=== PATIENT | male | born 1950 | race Caucasian/White ===

== ENCOUNTER → 2017-04-02 | Outpatient (CLI) | payer MEDICARE, OTHER ==
[~2017-04-02] MED LIST: ALLOPURINOL 10100 M1 PO; HYDROCODON-ACE1 EAC7 PO; HYDROCODONE-AP1 EAC6 PO; HYTRIN 5 M5 MG/1 CAP PO; INDOMETHACIN 2525 MG PO; LOPRESSOR100 M1 PO; PERCOCET PO; PRILOSEC20 MG PO; PRINIVIL20 MG PO; VIAGRA100 MG; ZOCOR20 MG PO
== END ==
LOC: M.MRI 07:44
DX: I67.82 Cerebral ischemia (principal)

== ENCOUNTER 2017-11-17 22:14 | Emergency (ER) | payer MEDICARE, OTHER ==
[~2017-11-17] VITALS: Ht 182.9 cm; Wt 102.1 kg
[~2017-11-17 22:14] MED LIST changes: -INDOMETHACIN 2525 MG PO; -PERCOCET PO
[2017-11-17 23:18] LABS: URINE BILIRUBIN NEGATIVE (Negative); URINE BLOOD NEGATIVE (Negative); URINE CLARITY CLEAR; URINE COLOR YELLOW; URINE GLUCOSE-RANDOM NEGATIVE (Negative); URINE KETONES NEGATIVE (Negative); URINE LEUKOCYTES-REFLEX NEGATIVE (Negative); URINE NITRITE-REFLEX NEGATIVE (Negative); URINE PROTEIN NEGATIVE (Negative); URINE UROBILINOGEN 0.2 E.U./dl (0.2-1.0)
[2017-11-17 23:19] LABS: ABSOLUTE EOSINOPHILS 0.2 thou/uL (0.0-0.7); ABSOLUTE LYMPHOCYTES 1.3 thou/uL (0.8-5.3); ABSOLUTE MONOCYTES 0.6 thou/uL (0.0-1.2); ABSOLUTE NEUTROPHILS 4.1 thou/uL (1.6-8.1); BASOPHILS 0.6 %; HEMATOCRIT 36.3 % (42.0-52.0); HEMOGLOBIN 12.3 gm/dL (14.0-18.0); LYMPHOCYTES 20.6 %; MCH 30.3 pg (26.0-34.0); MCHC 33.8 g/dL (28.0-37.0); MCV 89.6 fL (80.0-100.0); MONOCYTES 10.3 %; MPV 8.7 fl. (7.2-11.1); NUCLEATED RBCS 0 /100WBC; PLATELET COUNT* 156 thou/uL (150-400); POLYS 65.5 %; RBC 4.05 mil/uL (4.50-6.00); WBC 6.3 thou/uL (4.0-11.0)
[2017-11-17 23:26] LABS: CALCIUM 8.2 mg/dL (8.5-10.1); CREATININE 0.9 mg/dL (0.6-1.3)
[2017-11-17 23:31] LABS: ALBUMIN 3.7 g/dL (3.4-5.0); TOTAL BILIRUBIN 0.4 mg/dL (<0.1-1.0); TOTAL PROTEIN 7.5 g/dL (6.4-8.2)
[2017-11-18] MEDS ORDERED: PERCOCET PO (00:50)
[2017-11-18] MEDS ORDERED: INDOMETHACIN 2525 MG PO (00:50)
[2017-11-18 01:00] VITALS: BP 153/70
== END 2017-11-18 01:02 | disposition home or self-care (01) ==
LOC: M.ERS 22:14
PROVIDERS: Emergency Medicine
DX: R10.31 Right lower quadrant pain (principal); I10 Essential (primary) hypertension; Z96.653 Presence of artificial knee joint, bilateral; Z85.528 Personal history of other malignant neoplasm of kidney

== ENCOUNTER → 2018-10-21 | Outpatient (CLI) | payer MEDICARE, OTHER ==
[~2018-10-21] MED LIST changes: +INDOMETHACIN 2525 MG PO; +PERCOCET PO
== END ==
LOC: M.CT 12:26
DX: K40.90 Unilateral inguinal hernia, without obstruction or gangrene, not specified as recurrent (principal); I25.10 Atherosclerotic heart disease of native coronary artery without angina pectoris; Z87.891 Personal history of nicotine dependence; D64.9 Anemia, unspecified

== ENCOUNTER → 2019-05-02 | Outpatient (CLI) | payer MEDICARE, OTHER | LOC: M.ULTRA 04-25 10:00 | DX: N50.3 Cyst of epididymis (principal); I86.1 Scrotal varices ==

== ENCOUNTER → 2019-05-21 | Outpatient (CLI) | payer MEDICARE, OTHER | LOC: M.CT 12:57 | DX: N40.0 Benign prostatic hyperplasia without lower urinary tract symptoms (principal); N50.89 Other specified disorders of the male genital organs; K21.9 Gastro-esophageal reflux disease without esophagitis; M10.9 Gout, unspecified; E78.5 Hyperlipidemia, unspecified; I10 Essential (primary) hypertension; G20 Parkinson's disease; M47.817 Spondylosis without myelopathy or radiculopathy, lumbosacral region ==

== ENCOUNTER → 2019-10-02 | Outpatient (CLI) | payer MEDICARE, OTHER ==
[~2019-10-02] MED LIST changes: +BUPROPION XL150 MG PO; +CARBIDOPA-LEVO1 EAC9 PO; +EXELON1 EAC1 TRANSDERM; +FLUOXETINE HCL60 MG PO; +HYTRIN 2MG CAPSU2 M1 PO; +PRILOSEC OTC20 MG PO; -PRILOSEC20 MG PO; +REMERON30 MG PO
== END ==
LOC: M.LAB 15:09
PROVIDERS: ATTEND Surgery
DX: Z01.818 Encounter for other preprocedural examination (principal); K40.91 Unilateral inguinal hernia, without obstruction or gangrene, recurrent; Z11.59 Encounter for screening for other viral diseases

== ENCOUNTER → 2019-10-08 | Day surgery (SDC) | payer MEDICARE, OTHER ==
[~2019-10-08] MED LIST changes: +OXYCODONE HCL 55 MG PO
[2019-10-08 06:51] LABS: HEMATOCRIT 34.7 % (42.0-52.0); MCH 31.6 pg (26.0-34.0); MCHC 34.5 g/dL (28.0-37.0); MCV 91.6 fL (80.0-100.0); MPV 8.4 fl. (7.2-11.1); RBC 3.79 mil/uL (4.50-6.00); RDW-CV 13.6 % (10.5-14.5); WBC 4.2 thou/uL (4.0-11.0)
[2019-10-08 06:59] LABS: CALCIUM 8.1 mg/dL (8.5-10.1); CREATININE 0.9 mg/dL (0.6-1.3); POTASSIUM 3.9 mmol/L (3.5-5.1)
--- NOTE | 2019-10-08 10:40 | EKG ---
[place] [address] ELECTROCARDIOGRAM REPORT Name: ELVIS GLASGOW JR Room: [facility]#: [id number] Admission: 10/08/19 Attend Phys: Russell Gilbert DO Discharge: Date of : 46 Date of Service: 10/08/19 0634 Report #: [id number] THIS REPORT FOR: //name// [facility] Test Date: 2019-10-08 Test Time: 06:34:16 Pat Name: ELVIS GLASGOW Department: Room: Gender: Dredge Hand: REGINALD SUTTON : 1950 Requested By: Russell Gilbert Order Number: [id number] MD: George Simon Measurements Intervals [place] Rate: 83 P: 51 CT: 178 QRS: 58 QRSD: 146 T: 11 QT: 393 QTc: 462 Interpretive Statements Sinus rhythm Probable left atrial enlargement Right bundle branch block Artifact in lead(s) I,aVR,aVL,aVF Compared to ECG 10/04/2016 14:59:48 Right bundle-branch block now present Sinus tachycardia no longer present Electronically Signed On 10-08-2019 10:39:57 CDT by George Simon [email or web address] <ELECTRONICALLY SIGNED> By: George Simon MD, FAC 10/08/19 1039 0634 0634 George Siomn MD, FAC /EPI
--- NOTE | 2019-10-11 09:37 | OP ---
[address] [address] OPERATIVE REPORT Name: MYAHELVIS Nandini TALBOT Room: [facility]#: [id number] Admission: 10/08/19 Attend Phys: Russell Gilbert DO Discharge: Date of : 46 Report #: [id number] THIS REPORT FOR: //name// cc: Rebecca Valdez MD, Lin W. MD ~ THIS REPORT FOR: //name// CC: Russell Valdez MD DATE OF SERVICE: 10/08/2019 REFERRING PHYSICIAN: Dr. Rebecca Valdez. PREOPERATIVE DIAGNOSIS: Recurrent left inguinal hernia. POSTOPERATIVE DIAGNOSIS: Recurrent left inguinal hernia. PROCEDURE: Da Clifford robotic-assisted recurrent left inguinal hernia repair with 10 x 15 cm anatomic ProGrip mesh. SURGEON: Russell Gilbert DO AIRCRAFT ENGINEER: Jemal Bassett DO, PGY-1, resident. ANESTHESIA: General endotracheal and TAP blocks. ESTIMATED BLOOD LOSS: Less than 20 mL. COMPLICATIONS: None. DESCRIPTION OF PROCEDURE: After obtaining proper consents and discussing risks and complications with the patient as well as marking him in the preoperative holding area, he was taken to the operating room, laid in the supine position, administered general endotracheal anesthetic. TAP blocks were then performed by anesthesia. He was then prepped and draped in the usual sterile fashion. A timeout was performed. We confirmed the appropriate patient and procedure. Preoperative antibiotics had been given. We then made a small supraumbilical skin incision with a #11 scalpel blade. This was carried down through the skin into the subcutaneous tissue. Once the fascia was encountered, it was incised along the midline, grasped and elevated with Mark clamps. The peritoneum was then bluntly opened using a hemostat. We then placed 2-0 Vicryl sutures in a eheioy-zo-djuaq fashion to secure the da Clifford camera port, which was then inserted and insufflation was begun. Once insufflation was complete, full visual inspection of the anterior abdominal organs [place] [address] OPERATIVE REPORT Name: ELVIS GLASGOW JR Room: [facility].#: [id number] Admission: 10/08/19 Attend Phys: Russell Gilbert DO Discharge: Date of : 46 Report #: [id number] some adhesions, but a very definite hernia in the left lower quadrant with sigmoid colon going into it and on the right side, there did not appear to be a hernia; however, there were some adhesions of the terminal ileum to the right lower abdomen. We then placed two more 8.5 mm da Clifford ports, one in the right upper quadrant, one in the left upper quadrant. We then docked the da Clifford robot. Once the robot was docked, the camera was inserted, we then inserted a monopolar scissors in the right upper quadrant bipolar fenestrated grasper in the left upper quadrant. I then broke scrub and went on console. Once on console, I identified the ASIS on the patient's left side after taking down some adhesions using electrocautery. I also was able to reduce the incarcerated sigmoid colon and took down the adhesions from within the hernia sac holding the sigmoid colon within the hernia sac. Once this was done, I inspected the sigmoid colon and assured there was no injury to it and finding none, we then proceeded by opening the peritoneum from the median umbilical ligament laterally to the ASIS on the left side. I then developed the preperitoneal space. It began laterally as this was easier for the dissection. Then, I continued along the spermatic cord. There is a tiny attachment of the peritoneum to the spermatic cord structures. This was taken down using blunt dissection. I then continued the dissection all the way over to the direct inguinal hernia sac. The hernia sac was completely dissected free and the contents inverted back into the peritoneal cavity. I then continued the dissection more medially all the way to the pubic ramus and to the pubic symphysis. We were well below the pubic ramus. I then inserted a 10 x 15 cm ProGrip anatomic mesh for the left side. This was opened in its entirety and covered the hernia defect quite well. I then closed the peritoneum using a 2-0 absorbable V-Loc suture. There was a small hole in the peritoneum, which was repaired using 2-0 Vicryl suture. We then inspected the right side again and found this to be just a some scar tissue with a terminal ileum stuck up against the abdominal wall. I did not dissect this any further as I did not want to cause any injury and there was no hernia noted on the right side. I then rescrubbed and went back to the patient's bedside where we undocked the robot and removed all of the needles. We then removed all the trocars. I closed the umbilical fascia using the 2 previously placed 0 Vicryl sutures plus an additional 0 Vicryl sutures. Skin incisions were all closed using 4-0 Monocryl subcuticular stitches and Dermabond. The patient was awakened in the operating room and transported to recovery room in stable condition. Sponge, needle and instrument counts were all correct at the end of the procedure. <ELECTRONICALLY SIGNED> By: Russell Gilbert DO 10/11/19 0937 0935 [id number] trever Burch
== END | disposition home or self-care (01) ==
LOC: M.SUR 06:07
PROVIDERS: ATTEND Surgery
DX: K40.91 Unilateral inguinal hernia, without obstruction or gangrene, recurrent (principal); I10 Essential (primary) hypertension; K21.9 Gastro-esophageal reflux disease without esophagitis; E78.5 Hyperlipidemia, unspecified; M10.9 Gout, unspecified; Z79.899 Other long term (current) drug therapy; Z98.890 Other specified postprocedural states

== ENCOUNTER 2020-01-27 08:45 | Emergency (ER) | payer MEDICARE, OTHER ==
[~2020-01-27] VITALS: Ht 188 cm; Wt 103.4 kg
[2020-01-27] MEDS ORDERED: VIAGRA100 MG PO (09:01)
[2020-01-27] MEDS ORDERED: ONCE DAILY1 EAC1 PO (09:02)
[2020-01-27 09:41] VITALS: BP 160/80
== END 2020-01-27 09:41 | disposition home or self-care (01) ==
LOC: M.ERS 08:45
DX: S01.81XA Laceration without foreign body of other part of head, initial encounter (principal); I10 Essential (primary) hypertension; Z96.653 Presence of artificial knee joint, bilateral; Z85.528 Personal history of other malignant neoplasm of kidney; Z79.899 Other long term (current) drug therapy; W22.8XXA Striking against or struck by other objects, initial encounter; Y93.89 Activity, other specified; Y92.89 Other specified places as the place of occurrence of the external cause; Y99.8 Other external cause status

== ENCOUNTER → 2020-06-03 | Outpatient (CLI) | payer MEDICARE, OTHER ==
[~2020-06-03] MED LIST changes: +ONCE DAILY1 EAC1 PO; +VIAGRA100 MG PO
== END ==
LOC: M.ULTRA 14:30
PROVIDERS: ATTEND Internal Medicine
DX: E04.2 Nontoxic multinodular goiter (principal)

== ENCOUNTER 2020-06-21 15:11 | Observation (INO) | payer MEDICARE, OTHER ==
[~2020-06-21] VITALS: Ht 182.9 cm; Wt 99.8 kg
--- NOTE | ~2020-06-21 | PROC ---
[facility] [address] [place] [address] PROCEDURE REPORT Name: ELVIS GLASGOW JR Room: [address] Donnell Handley#: [id number] Admission: 06/21/20 Attend Phys: Henrry Shepherd Discharge: 06/22/20 Date of : 46 Report #: [id number] THIS REPORT FOR: cc: Rebecca Valdez MD, Lin W. MD [facility],Medical Records Staff ~ For GI report, please see the Provation report in Perceptive 7 content. By: 1314Medical Records Staff [facility] /BREN
[2020-06-21 15:18] VITALS: BP 138/72
[2020-06-21 15:34] LABS: ABSOLUTE EOSINOPHILS 0.1 thou/uL (0.0-0.7); ABSOLUTE LYMPHOCYTES 0.8 thou/uL (0.8-5.3); ABSOLUTE MONOCYTES 0.4 thou/uL (0.0-1.2); ABSOLUTE NEUTROPHILS 4.2 thou/uL (1.6-8.1); BASOPHILS 0.4 %; EOSINOPHILS 1.6 %; HEMATOCRIT 36.3 % (42.0-52.0); LYMPHOCYTES 14.9 %; MCH 29.9 pg (26.0-34.0); MCV 90.7 fL (80.0-100.0); MONOCYTES 8.1 %; MPV 8.7 fl. (7.2-11.1); NUCLEATED RBCS 0 /100WBC; PLATELET COUNT* 158 thou/uL (150-400); RBC 4.01 mil/uL (4.50-6.00); RDW-CV 13.2 % (10.5-14.5); WBC 5.6 thou/uL (4.0-11.0)
[2020-06-21 15:53] LABS: CALCIUM 8.4 mg/dL (8.5-10.1); CREATININE 0.8 mg/dL (0.6-1.3); POTASSIUM 3.9 mmol/L (3.5-5.1)
[2020-06-21 15:58] LABS: ALBUMIN 3.7 g/dL (3.4-5.0); TOTAL BILIRUBIN 0.4 mg/dL (<0.1-1.0); TOTAL PROTEIN 7.1 g/dL (6.4-8.2)
[2020-06-21 16:59] LABS: URINE BILIRUBIN NEGATIVE (Negative); URINE BLOOD NEGATIVE (Negative); URINE CLARITY CLEAR; URINE COLOR YELLOW; URINE GLUCOSE-RANDOM NEGATIVE (Negative); URINE KETONES NEGATIVE (Negative); URINE LEUKOCYTES-REFLEX NEGATIVE (Negative); URINE NITRITE-REFLEX NEGATIVE (Negative); URINE PROTEIN NEGATIVE (Negative); URINE UROBILINOGEN 0.2 E.U./dl (0.2-1.0)
[2020-06-21 20:03] VITALS: BP 142/73
[2020-06-22] VITALS: BP 141/75
[2020-06-22 04:00] VITALS: BP 147/79
[2020-06-22 05:14] LABS: CALCIUM 8.3 mg/dL (8.5-10.1); CREATININE 0.8 mg/dL (0.6-1.3); POTASSIUM 4.3 mmol/L (3.5-5.1)
[2020-06-22 05:17] LABS: HEMATOCRIT 35.5 % (42.0-52.0); HEMOGLOBIN 11.8 gm/dL (14.0-18.0); MCH 29.8 pg (26.0-34.0); MCHC 33.2 g/dL (28.0-37.0); MCV 89.8 fL (80.0-100.0); MPV 8.7 fl. (7.2-11.1); RBC 3.95 mil/uL (4.50-6.00); RDW-CV 13.2 % (10.5-14.5); WBC 4.1 thou/uL (4.0-11.0)
[2020-06-22 05:57] LABS: % SATURATION 28 % (20-39); IRON 71 ug/dL (50-175)
--- NOTE | 2020-06-22 06:25 | NUR ---
NO ACUTE CHANGES THROUGHOUT SHIFT. SEE CHARTING FOR DETAILS.
[2020-06-22 12:00] VITALS: BP 139/71
--- NOTE | 2020-06-22 13:09 | NUR ---
PT OFF UNIT TO GI LAB.
--- NOTE | 2020-06-22 13:35 | EKG ---
[place] [address] ELECTROCARDIOGRAM REPORT Name: ELVIS GLASGOW JR Room: [address] ADM IN M.R.#: [id number] Admission: 06/21/20 Attend Phys: Tima Oseguera Discharge: Date of : 46 Date of Service: 06/21/20 1528 Report #: [id number] THIS REPORT FOR: //name// ED Test Date: 2020-06-21 Test Time: 15:28:36 Pat Name: ELVIS GLASGOW Department: Room: [facility] Gender: M Director Of Analytics: ANIL : 1950 Requested By: Momo Barahona Order Number: [id number] MD: Randy Zhou Measurements Intervals [place] Rate: 66 P: 37 MA: 55 QRS: 132 QRSD: 160 T: 3 QT: 416 QTc: 436 Interpretive Statements Sinus rhythm Short MA interval Biatrial enlargement RBBB and LPFB Inferior infarct, old Baseline wander in lead(s) V2 Compared to ECG 10/08/2019 06:34:16 Short MA interval now present Left posterior fascicular block now present Electronically Signed On 06-22-2020 13:35:30 CDT by Randy Zhou [email or web address] <ELECTRONICALLY SIGNED> By: Randy Zhou MD, [facility] 06/22/20 1335 1528 1528 Randy Zhou MD, [facility] /EPI
--- NOTE | 2020-06-22 14:50 | NUR ---
Pt is A&O. Resides at home with . Normally active and independent. No DME. Hx of HH post knee replacement. No hx of SNF. Pt to have EGD today. Goal is home at co, no needs anticipated.
--- NOTE | 2020-06-22 16:11 | NUR ---
DR. JOSE STOPPED BY AND INFORMED ME ONCE THE PT RETURNS TO THE UNIT LET HIM EAT DINNER AND DISCHARGE TO HOME.
[2020-06-22] MEDS ORDERED: PROTONIX40 M2 PO (16:40)
[2020-06-22 16:50] VITALS: BP 139/71
--- NOTE | 2020-06-24 16:06 | PATH ---
[address] [address] PATHOLOGY RPT PROCEDURE Name: GLASGOWELVIS JR Room: [address] Donnell Handley#: [id number] Admission: 06/21/20 Date of : 46 Discharge: 06/22/20 Report #: [id number] Path Case #: [id number] [facility] Accession Number: [id number] . 01 Material submitted: . stomach - GASTRIC BIOPSY FOR GASTRITIS . 02 Diagnosis: Gastric biopsy: - Mild nonspecific chronic gastritis with suggestion of fundic gland polyp(s), negative for Helicobacter pylori organisms and dysplasia. (TABBY:dayne; 06/24/2020) . Special stain: H. pylori immuno MBR 06/24/2020 1232 Local . 02 Electronically signed: . Juanjo Odom MD, Pathologist NPI- [id number] . 01 Gross description: . Received in formalin and labeled "Glasgow Jr, Edward and gastric biopsy". Received are 3 mathur-summers soft tissue fragments ranging from 0.2-0.3 cm. Specimen is entirely submitted in cassette A1.([facility]; 06/23/2020) [facility] 06/24/2020 1231 Local . 02 Pathologist provided ICD-10: K29.50 . 02 CPT . 536264, L52675 Specimen Comment: A courtesy copy of this report has been sent to [phone], [phone] Specimen Comment: [phone] Specimen Comment: Report sent to ,DR CHANDLER / DR VINSON Performed at: [address], [place], [place] [id number] MD Russell Clayton MD Phone: [phone] Performed at: [address] [address] [facility] , [place], [place] [id number] MD Juanjo Odom MD Phone: [phone]
== END 2020-06-22 17:23 | disposition home or self-care (01) ==
LOC: M.ERS 15:11 → M.2W 16:36 → M.TBA-ER 16:36 → M.2W 19:57
PROVIDERS: Emergency Medicine Emergency Medical Services; ADMIT Internal Medicine; ATTEND Internal Medicine
DX: K92.2 Gastrointestinal hemorrhage, unspecified (principal); Z20.822 Contact with and (suspected) exposure to COVID-19; G31.83 Neurocognitive disorder with Lewy bodies; Z85.520 Personal history of malignant carcinoid tumor of kidney; Z85.828 Personal history of other malignant neoplasm of skin

== ENCOUNTER 2020-11-29 04:23 | Inpatient (IN) | payer MEDICARE, OTHER ==
[2020-11-29] VITALS (8 sets, daily range): BP systolic 130–148; BP diastolic 70–85
[~2020-11-29] VITALS: Ht 188 cm; Wt 90.7 kg
[~2020-11-29 04:23] MED LIST changes: +PROTONIX40 M2 PO
[2020-11-29 05:04] LABS: HEMOGLOBIN 11.8 gm/dL (14.0-18.0); MCH 29.9 pg (26.0-34.0); MCHC 33.7 g/dL (28.0-37.0); MCV 88.8 fL (80.0-100.0); MPV 8.6 fl. (7.2-11.1); RBC 3.95 mil/uL (4.50-6.00); RDW-CV 12.8 % (10.5-14.5); WBC 6.4 thou/uL (4.0-11.0)
[2020-11-29 05:09] LABS: URINE BILIRUBIN NEGATIVE (Negative); URINE BLOOD NEGATIVE (Negative); URINE CLARITY CLEAR; URINE COLOR YELLOW; URINE GLUCOSE-RANDOM NEGATIVE (Negative); URINE KETONES TRACE (Negative); URINE LEUKOCYTES-REFLEX NEGATIVE (Negative); URINE NITRITE-REFLEX NEGATIVE (Negative); URINE PROTEIN NEGATIVE (Negative); URINE SPECIFIC GRAVITY 1.025 (1.005-1.030); URINE UROBILINOGEN 0.2 E.U./dl (0.2-1.0)
[2020-11-29 05:10] LABS: CREATININE 1.1 mg/dL (0.6-1.3); POTASSIUM 4.2 mmol/L (3.5-5.1)
[2020-11-29 05:15] LABS: ALBUMIN 3.5 g/dL (3.4-5.0); TOTAL BILIRUBIN 0.6 mg/dL (<0.1-1.0); TOTAL PROTEIN 7.1 g/dL (6.4-8.2)
[2020-11-29 10:31] LABS: CHOLESTEROL 110 mg/dL (<200); HDL CHOLESTEROL 37 mg/dL (>40); LDL CHOLESTEROL 59 mg/dL (<100); SERUM ASSESSMENT Clear; TRIGLYCERIDE 70 mg/dL (<150); VLDL 14 mg/dL (<40)
--- NOTE | 2020-11-29 11:53 | EKG ---
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: ID : 1950 Requested By: Philomena Lynn Order Number: [id number] MD: George Simon Measurements Intervals [place] Rate: 91 P: 40 SC: 160 QRS: 105 QRSD: 146 T: 9 QT: 364 QTc: 448 Interpretive Statements Sinus rhythm Probable left atrial enlargement RBBB and LPFB Compared to ECG 06/21/2020 15:28:36 Short SC interval no longer present Myocardial infarct finding no longer present Electronically Signed On 11-29-2020 11:53:06 CDT by George Simon [email or web address] <ELECTRONICALLY SIGNED> By: George Simon MD, [facility] 11/29/20 1153 042 0421 George Simon MD, FAC /EPI
[2020-11-30 01:15] VITALS: BP 127/71
[2020-11-30 05:08] VITALS: BP 145/67
[2020-11-30 07:09] LABS: GLYCOHEMOGLOBIN (HGB A1C) 5.2 % (4.8-5.6)
[2020-11-30 08:00] VITALS: BP 128/68
[2020-11-30 16:09] VITALS: BP 114/78
[2020-11-30 21:19] VITALS: BP 125/77
[2020-11-30 21:22] LABS: INR 1.1; PROTIME 11.5 Seconds (9.20-11.50)
[2020-12-01 01:22] VITALS: BP 161/81
[2020-12-01 04:57] LABS: ABSOLUTE EOSINOPHILS 0.1 thou/uL (0.0-0.7); ABSOLUTE LYMPHOCYTES 0.9 thou/uL (0.8-5.3); ABSOLUTE MONOCYTES 0.6 thou/uL (0.0-1.2); ABSOLUTE NEUTROPHILS 4.6 thou/uL (1.6-8.1); ALBUMIN 3.1 g/dL (3.4-5.0); BASOPHILS 0.3 %; CALCIUM 8.3 mg/dL (8.5-10.1); CREATININE 0.7 mg/dL (0.6-1.3); EOSINOPHILS 2.3 %; HEMATOCRIT 34.6 % (42.0-52.0); HEMOGLOBIN 11.9 gm/dL (14.0-18.0); LYMPHOCYTES 14.2 %; MAGNESIUM 1.7 mg/dL (1.8-2.4); MCH 30.4 pg (26.0-34.0); MCHC 34.3 g/dL (28.0-37.0); MCV 88.6 fL (80.0-100.0); MONOCYTES 9.4 %; MPV 8.7 fl. (7.2-11.1); NUCLEATED RBCS 0 /100WBC; PHOSPHORUS* 3.1 mg/dL (2.5-4.9); PLATELET COUNT* 244 thou/uL (150-400); POLYS 73.8 %; POTASSIUM 3.6 mmol/L (3.5-5.1); RBC 3.91 mil/uL (4.50-6.00); RDW-CV 12.8 % (10.5-14.5); TOTAL BILIRUBIN 0.3 mg/dL (<0.1-1.0); TOTAL PROTEIN 6.6 g/dL (6.4-8.2); WBC 6.2 thou/uL (4.0-11.0)
[2020-12-01 05:14] LABS: URINE BILIRUBIN NEGATIVE (Negative); URINE BLOOD NEGATIVE (Negative); URINE CLARITY CLEAR; URINE COLOR YELLOW; URINE GLUCOSE-RANDOM NEGATIVE (Negative); URINE KETONES TRACE (Negative); URINE LEUKOCYTES-REFLEX NEGATIVE (Negative); URINE NITRITE-REFLEX NEGATIVE (Negative); URINE PROTEIN NEGATIVE (Negative); URINE SPECIFIC GRAVITY 1.025 (1.005-1.030)
[2020-12-01 05:20] LABS: AMP/METHAMP Negative (Negative); BARBITURATES Negative (Negative); BENZODIAZEPINES Negative (Negative); COCAINE Negative (Negative); METHADONE Negative (Negative); OPIATES Negative (Negative); PCP Negative (Negative); THC Negative (Negative)
[2020-12-01 05:37] VITALS: BP 154/80
[2020-12-01 08:00] VITALS: BP 150/85
--- NOTE | 2020-12-01 08:41 | CON ---
[address] [address] CONSULTATION Name: GLASGOWELVIS JR Room: [address] IN M.R.#: [id number] Admission: 11/29/20 Attend Phys: Simone Richards MD Discharge: Date of : 46 Report #: [id number] THIS REPORT FOR: cc: Rebecca Valdez MD, Lin W. MD Khosla, Parveen K. MD ~ DATE OF CONSULTATION: 11/29/2020 HISTORY OF PRESENT ILLNESS: This is a 70-year-old male patient who was seen by me for altered mental status. I reviewed the records in the computer. First, I cannot reach the patient's and subsequently, I was able to reach the patient's . I talked to the nurses and I talked to Dr. Castro. This patient was diagnosed with Lewy body dementia at [facility]. He follows up with them every 6 months. They did an MRI and mainly did neuropsychological testing after that. He was stable. He was able to take care of activity of daily living. On 11/16, something happened, he was found passed out. He was taken to [facility] and workup was done. He was sent to a senior living, but the took him out because the says it was the most filthy place. REVIEW OF SYSTEMS: The patient's presenting symptoms for Lewy body dementia who was stopping in between sentences and hallucination. It looks like they were visual hallucination. This patient is on Parkinson medication and I am not sure how much parkinsonian feature he had. He had a fall and looks like he had multiple falls. He is on Exelon. This is the 14-point review of system, I can get in this patient. PAST MEDICAL HISTORY: Positive for diagnosis of Lewy body dementia. REVIEW OF SYSTEMS: Also positive for hernia, colonoscopy, some question of pancreatic cancer, kidney cancer. I am not sure further history. Knee replacement, hypertension. PAST MEDICAL HISTORY: Positive for falls. FAMILY HISTORY: Unremarkable. SOCIAL HISTORY: He drinks significant amount of alcohol. PHYSICAL EXAMINATION: The patient's examination indicate that this patient is not able to cooperate at all. He does not do anything. He wanted to talk to me. He would not follow any commands. It looks like he can move all 4 extremities, but he will not cooperate [place] [id number] CONSULTATION Name: ELVIS GLASGOW JR Room: [address]#: [id number] Admission: 11/29/20 Attend Phys: Simone Richards MD Discharge: Date of : 46 Report #: [id number] LABORATORY DATA: He did have a CT scan of the head and C-spine in this patient and that was reviewed and that does not appear to be showing any acute process. He does have a degenerative disease. IMPRESSION: 1. Lewy body dementia. 2. This patient appeared to drink significant amount of alcohol. The underestimated that and says he never gets drunk, but I think that probably is affecting his brain, especially because his brain was already compromised with the Lewy body dementia. I am not sure what else can be done here. I will give him some thiamine. We will get records from [facility]. He ultimately has to go back to [facility], but the disease is basically untreatable and there is a limited thing we can do. Thank you very much for this referral. More than 50 minutes of time was spent taking care of this patient today and majority was spent counseling, coordinating and reviewing his imaging studies. <ELECTRONICALLY SIGNED> By: Markie Jimenez MD 12/01/20 0841 1807 1933Pmaria c Jimenez MD /nt
[2020-12-01] MEDS ORDERED: PRENATAL PO (08:58)
[2020-12-01] MEDS ORDERED: VITAMIN B-1100 M1 PO (08:58)
[2020-12-01 11:44] VITALS: BP 108/65
[2020-12-01 15:38] VITALS: BP 108/65
== END 2020-12-01 15:55 | disposition hospice, home (50) | DRG 896 ==
LOC: M.ERS 04:23 → M.2W 05:55 → M.TBA-ER 05:55 → M.2W 08:03
PROVIDERS: Internal Medicine; Personal Emergency Response Attendant; ADMIT Internal Medicine; ATTEND Internal Medicine
DX: F10.139 Alcohol abuse with withdrawal, unspecified (principal); G93.41 Metabolic encephalopathy; G31.83 Neurocognitive disorder with Lewy bodies; Z96.653 Presence of artificial knee joint, bilateral; I10 Essential (primary) hypertension; R53.81 Other malaise; Z20.822 Contact with and (suspected) exposure to COVID-19; Z85.07 Personal history of malignant neoplasm of pancreas; Z85.528 Personal history of other malignant neoplasm of kidney; Z87.891 Personal history of nicotine dependence

== ENCOUNTER 2020-12-31 23:38 | Inpatient (IN) | payer MEDICARE, OTHER ==
[~2020-12-31] VITALS: Ht 185.4 cm; Wt 91.9 kg
[~2020-12-31 23:38] MED LIST changes: -BUPROPION XL150 MG PO; +BUPROPION XL300 MG PO; +PRENATAL PO; +VITAMIN B-1100 M1 PO
[2020-12-31 23:52] VITALS: BP 155/84
[2021-01-01] VITALS (7 sets, daily range): BP systolic 143–152; BP diastolic 68–97
[2021-01-01 00:26] LABS: ABSOLUTE EOSINOPHILS 0.2 thou/uL (0.0-0.7); ABSOLUTE LYMPHOCYTES 0.9 thou/uL (0.8-5.3); ABSOLUTE MONOCYTES 0.7 thou/uL (0.0-1.2); ABSOLUTE NEUTROPHILS 6.6 thou/uL (1.6-8.1); BASOPHILS 0.2 %; EOSINOPHILS 1.8 %; HEMATOCRIT 37.5 % (42.0-52.0); HEMOGLOBIN 12.6 gm/dL (14.0-18.0); LYMPHOCYTES 10.3 %; MCH 29.8 pg (26.0-34.0); MCHC 33.5 g/dL (28.0-37.0); MCV 88.8 fL (80.0-100.0); MONOCYTES 8.2 %; MPV 8.5 fl. (7.2-11.1); NUCLEATED RBCS 0 /100WBC; PLATELET COUNT* 180 thou/uL (150-400); POLYS 79.5 %; RBC 4.22 mil/uL (4.50-6.00); RDW-CV 13.5 % (10.5-14.5); WBC 8.3 thou/uL (4.0-11.0)
[2021-01-01 00:37] LABS: CALCIUM 8.9 mg/dL (8.5-10.1); POTASSIUM 3.9 mmol/L (3.5-5.1)
[2021-01-01 00:42] LABS: ALBUMIN 3.5 g/dL (3.4-5.0); TOTAL BILIRUBIN 0.4 mg/dL (<0.1-1.0); TOTAL PROTEIN 7.3 g/dL (6.4-8.2)
[2021-01-01 02:56] LABS: APTT 27.9 Seconds (25.0-31.3); PROTIME 10.9 Seconds (9.20-11.50)
[2021-01-01] MEDS ORDERED: RIVASTIGMINE3 MG PO (06:01)
[2021-01-01] MEDS ORDERED: SEROQUEL 25 MG25 MG PO (06:05)
[2021-01-01] MEDS ORDERED: LORAZEPAM 0.50.5 MG PO (06:06)
[2021-01-01] MEDS ORDERED: IBUPROFEN 400400 M1 PO (06:07)
[2021-01-02 03:58] LABS: CALCIUM 8.1 mg/dL (8.5-10.1); CREATININE 0.8 mg/dL (0.6-1.3); POTASSIUM 3.7 mmol/L (3.5-5.1)
[2021-01-02 04:06] LABS: HEMATOCRIT 36.4 % (42.0-52.0); HEMOGLOBIN 12.1 gm/dL (14.0-18.0); MCH 29.9 pg (26.0-34.0); MCHC 33.4 g/dL (28.0-37.0); MCV 89.6 fL (80.0-100.0); MPV 8.5 fl. (7.2-11.1); RBC 4.06 mil/uL (4.50-6.00); RDW-CV 13.5 % (10.5-14.5); WBC 5.7 thou/uL (4.0-11.0)
[2021-01-02 16:00] VITALS: BP 160/79
[2021-01-02 20:00] VITALS: BP 148/94
[2021-01-02 23:51] VITALS: BP 119/64
[2021-01-03 03:20] VITALS: BP 135/71
[2021-01-03 05:03] LABS: HEMATOCRIT 33.1 % (42.0-52.0); HEMOGLOBIN 11.2 gm/dL (14.0-18.0); MCH 30.2 pg (26.0-34.0); MCV 88.7 fL (80.0-100.0); MPV 8.4 fl. (7.2-11.1); RBC 3.72 mil/uL (4.50-6.00); RDW-CV 13.2 % (10.5-14.5); WBC 4.8 thou/uL (4.0-11.0)
[2021-01-03 05:06] LABS: CALCIUM 8.2 mg/dL (8.5-10.1); CREATININE 0.7 mg/dL (0.6-1.3); POTASSIUM 3.2 mmol/L (3.5-5.1)
[2021-01-03 08:00] VITALS: BP 138/76
[2021-01-03 16:00] VITALS: BP 142/72
[2021-01-03 20:38] VITALS: BP 141/73
[2021-01-03 21:08] LABS: ALBUMIN 2.7 g/dL (3.4-5.0); CREATININE 0.7 mg/dL (0.6-1.3); POTASSIUM 3.7 mmol/L (3.5-5.1); TOTAL BILIRUBIN 0.6 mg/dL (<0.1-1.0); TOTAL PROTEIN 5.9 g/dL (6.4-8.2)
[2021-01-04 00:28] VITALS: BP 137/72
[2021-01-04 04:58] VITALS: BP 142/72
[2021-01-04 08:56] VITALS: BP 141/72
[2021-01-04 14:06] VITALS: BP 141/72
== END 2021-01-04 14:39 | disposition hospice, home (50) | DRG 389 ==
LOC: M.ERS 23:38 → M.TBA-ER 01-01 02:35 → M.2W 01-01 02:35
PROVIDERS: Internal Medicine; Personal Emergency Response Attendant; ADMIT Internal Medicine; ATTEND Internal Medicine
DX: K56.609 Unspecified intestinal obstruction, unspecified as to partial versus complete obstruction (principal); F02.81 Dementia in other diseases classified elsewhere, unspecified severity, with behavioral disturbance; C64.9 Malignant neoplasm of unspecified kidney, except renal pelvis; Z20.822 Contact with and (suspected) exposure to COVID-19; I10 Essential (primary) hypertension; Z96.653 Presence of artificial knee joint, bilateral; G20 Parkinson's disease; Z82.49 Family history of ischemic heart disease and other diseases of the circulatory system; Z90.5 Acquired absence of kidney; Z28.21 Immunization not carried out because of patient refusal; Z85.828 Personal history of other malignant neoplasm of skin